=== PATIENT | female | born 1975 | race Two or more races ===

== ENCOUNTER → 2024-11-02 | Outpatient (CLI) | payer OTHER, SELFPAY ==
--- NOTE | 2024-11-02 11:15 | XR_ITS ---
Examination: Breast ultrasound, unilateral, right Date and time of exam: November 02, 2024 1113 hrs. Indications: Mammogram June 23, 2024 12 mm nodule inner upper right breast Technique: Real-time porter scale ultrasonographic imaging performed right breast including all 4 quadrants as well as nipple retroareolar and axillary region. Findings: 2:00 nodule lobular margins 6 x 7 mm 5:00 cyst 5 x 6 mm 10:00 cyst 5 x 6 mm Impression: BI-RADS Category 3: Probably benign findings Recommend 1 additional 6 month right breast sonogram follow-up to document stability of 2:00 nodule described above
--- NOTE | 2024-11-02 11:45 | XR_ITS ---
Examination: Diagnostic digital mammography, unilateral, right Computer aided detection 3-D breast Tomosynthesis, unilateral Date and time of exam: 11/02/2024, 11:39 AM Comparisons: September 2021, May 2024 Indications: Further evaluation of right upper inner quadrant nodule and outer breast microcalcifications. Technique: Nonmagnified MLO, CC views of the right breast have been obtained, reconstructed from 3-D Tomosynthesis images. R2 computer aided detection program utilized for evaluation of suspicious masses and/or abnormal calcifications. 3-D Tomosynthesis images obtained. Technologist: Findings: The breasts are heterogeneously dense, which may obscure small masses. The previously described right upper inner quadrant nodule does not persist on spot compression views and represents superimposition of normal fibroglandular tissue. Previously described upper outer quadrant microcalcifications are not well visualized. Exam is suboptimal likely secondary to technique/patient motion[.] Recommend repeat spot magnification views with radiologist in attendance. Impression: BI-RADS category 0: Incomplete assessment; need additional imaging evaluation
== END | disposition home or self-care (01) ==
PROVIDERS: PCP Nurse Practitioner Family; Referring Provider Nurse Practitioner Family; Visit Provider Nurse Practitioner Family
DX: R92.8 Other abnormal and inconclusive findings on diagnostic imaging of breast (principal); N63.15 Unspecified lump in the right breast, overlapping quadrants
CPT/HCPCS: 76641; 77061; 77065; G0279